=== PATIENT | female | born 2000 | race Caucasian/White ===

== ENCOUNTER 2022-02-19 08:35 | Outpatient (CLI) | payer BC ==
[2022-02-19] MEDS ORDERED: Iopamidol 300 61% 100 ML VIAL FS ONE (13:41)
== END 2022-02-19 08:36 | disposition home or self-care (01) ==
LOC: CSHCT 08:35
PROVIDERS: ATTEND Nurse Practitioner Family
DX: R10.30 Lower abdominal pain, unspecified (principal); R19.5 Other fecal abnormalities; N83.291 Other ovarian cyst, right side
CPT/HCPCS: 74177; Q9967